=== PATIENT | female | born 1990 | race Caucasian/White ===

== ENCOUNTER 2017-07-13 23:10 | Outpatient (CLI) | payer MEDICAID, BC ==
[2017-07-14 00:30] LABS: ADD UMIC NO; UR ASCORBIC ACID NEGATIVE (NEGATIVE); UR BILIRUBIN (Dip) NEGATIVE (NEGATIVE); UR BLOOD (Dip) NEGATIVE (NEGATIVE); UR CLARITY CLEAR (CLEAR); UR COLOR STRAW (YELLOW); UR GLUCOSE (Dip) NEGATIVE (NEGATIVE); UR KETONES (Dip) NEGATIVE (NEGATIVE); UR LEUKOCYTE ESTERASE (Dip) NEGATIVE Leu/ul (NEGATIVE); UR NITRITE (Dip) NEGATIVE (NEGATIVE); UR SPECIFIC GRAVITY (Dip) 1.008 (1.003-1.030); UR TOTAL PROTEIN (Dip) NEGATIVE (NEGATIVE); UR UROBILINOGEN (Dip) NEGATIVE (NEGATIVE)
== END 2017-07-14 01:22 | disposition home or self-care (01) ==
LOC: OBT 23:10 → L-D 23:10
DX: O36.8130 Decreased fetal movements, third trimester, not applicable or unspecified (principal); Z3A.37 37 weeks gestation of pregnancy
CPT/HCPCS: 76818; 81003; 87086

== ENCOUNTER 2017-08-05 20:51 | Emergency (ER) | payer MEDICAID ==
[2017-08-05] MEDS: HYDROCODONE/APAP (5/325) TAB PO (21:57)
[2017-08-05] MEDS: LIDOCAINE 4% CR TOP (21:57)
== END 2017-08-05 22:08 | disposition home or self-care (01) ==
LOC: FTE 20:51
DX: O90.89 Other complications of the puerperium, not elsewhere classified (principal); N94.89 Other specified conditions associated with female genital organs and menstrual cycle
CPT/HCPCS: 99283; Z7610